=== PATIENT | female | born 1985 | race Caucasian/White ===

== ENCOUNTER 2020-03-20 08:37 | Day surgery (SDC) | payer OTHER, SELFPAY ==
[2020-03-17 09:55] VITALS: BMI 29.2
--- NOTE | 2020-03-20 08:40 | W.PM.OPSFHP ---
Same Day Surgery H&P Indication for Procedure/HPI DATE OF PROCEDURE: March 20, 2020 CHIEF COMPLAINT/INDICATIONFOR SURGICAL PROCEDURE: Dysphagia and odynophagia PREOP DIAGNOSIS: Dysphasia and odynophagia PLANNED PROCEDRUE: Operation Date: 03/20/20 10:05 Proposed Procedures p EGD [id number] /R13.10(Not Applicable) - Danilo Fine MD Medications/Allergies* Home Medications Medication Instructions Recorded Confirmed Type docusate sodium 100 mg capsule 100 mg PO BID 11/12/19 03/17/20 History magnesium glycinate 200 mg PO BID 03/17/20 03/17/20 History Allergies/Adverse Reactions Allergy/AdvReac Type Severity Reaction Status Date / Time No Known Allergies Allergy Verified 03/13/20 14:44 Pertinent History/Comorbid Conditions* Medical History (Updated 03/13/20 @ 15:16 by Danilo Fine MD) Anxiety Hemorrhoids Surgical History (Updated 11/12/19 @ 11:17 by David Celis MD) H/O oral surgery History of delivery Family History (Updated 11/12/19 @ 11:06 by Julee Terrell LPN) Heart disease Cancer Father melanoma Grandfather colon Hypertension Denies family history of Anesthesia complication Bleeding disorder Social History Smoking and tobacco status: never smoked Alcohol intake: never Household members: spouse and children Marital status: Current occupational status: employed Pertinent Exam Findings alert, oriented x 3, clear to auscultation bilaterally, regular rate & rhythm, operative site marked and procedure specific exam findings Recommendations Surgery/Procedure today Coding Level of Care Code Acute Healthcare Technician for Henok Stark
--- NOTE | 2020-03-20 08:47 | ANES.PREANE2 ---
Pre-Anesthetic Assessment Pre-Anesthetic Assessment: Height/Weight: Height 1.57 m Weight 72.575 kg Preop Diagnosis: dysphagia Proposed Procedure: Operation Date: 03/20/20 10:05 Proposed Procedures p EGD [id number] /R13.10(Not Applicable) - Danilo Fine MD Familial anesthetic complications: None Was Beta Hallie taken within 24 hours: N/A Last intake: NPO Social: Social History: No alcohol and No tobacco Exam: Pre-Anes Outpt Exam: alert, oriented x 3, clear to auscultation bilaterally and regular rate & rhythm Airway: Cervical ROM: WNL MP: 2 Dentition: Full Pulmonary: Pulmonary: None reported CV/HEM: CV/HEM: None reported : : None reported Hepatic: Hepatic: None reported GI: GI: None reported Metabolic: Metabolic: None reported Musc/skel: Musc/skel: None reported Neuropsych: Neuropsych: None reported Anesthetic Plan: ASA status: 1 Anesthesia: MAC Risk of > 500 ml blood loss (7ml/kg in children): No PFSH Anesthesia PFSH: Medical History (Updated 03/13/20 @ 15:16 by Danilo Fine MD) Anxiety Hemorrhoids Surgical History H/O oral surgery History of delivery Family History Father Cancer melanoma Grandfather Cancer colon Other Heart disease Hypertension Denies family history of Anesthesia complication Bleeding disorder Social History Smoking and tobacco status: never smoked Alcohol intake: never Household members: spouse and children Marital status: Current occupational status: employed Female Reproductive History: Date of last menstrual period: 02/21/20 Data Anesthesia Cardiac Studies: No Data to Display
[2020-03-20 08:50] VITALS: BP 146/81; PULSE 87; RESP 18; TEMP 36.6; O2SAT 100
[2020-03-20 09:14] LABS: OR HCG Qualitative Urine Negative (Negative)
[2020-03-20] MEDS: sodium chloride 0.9% 1,000 ML 30 ML IV (09:15)
[2020-03-20 10:24] VITALS: BP 118/74; PULSE 87; RESP 18; TEMP 36.6; O2SAT 98
[2020-03-20 10:37] VITALS: BP 105/65; PULSE 72; RESP 18; O2SAT 100
[2020-03-21 10:08] LABS: H. Pylori / CLO Test Negative
== END 2020-03-20 11:00 | disposition home or self-care (01) ==
PROVIDERS: Anesthesiology; PCP Internal Medicine; Visit Provider Internal Medicine
PROC: 0DJ08ZZ Inspection of Upper Intestinal Tract, Via Natural or Artificial Opening Endoscopic (ICD-10-PCS; CPT 43235; principal; 2020-03-20 10:00)
DX: R13.10 Dysphagia, unspecified (principal); K29.70 Gastritis, unspecified, without bleeding; F41.9 Anxiety disorder, unspecified
CPT/HCPCS: 12345; 43239; 81025; 84703; 87077; J2001; J2704; J7030

== ENCOUNTER → 2020-07-06 14:38 | Outpatient (BNVA) | payer OTHER, SELFPAY | PROVIDERS: PCP Internal Medicine; Referring Provider Dermatology; Visit Provider Dermatology | DX: Z12.83 Encounter for screening for malignant neoplasm of skin (principal); D22.9 Melanocytic nevi, unspecified; L81.4 Other melanin hyperpigmentation; Z80.8 Family history of malignant neoplasm of other organs or systems | CPT/HCPCS: 99203 ==

== ENCOUNTER → 2021-06-14 13:25 | Outpatient (BNVA) | payer OTHER, SELFPAY | PROVIDERS: PCP Internal Medicine; Visit Provider Nurse Practitioner Family | DX: R21 Rash and other nonspecific skin eruption (principal) | CPT/HCPCS: 87040 ==

== ENCOUNTER → 2022-05-27 10:21 | Outpatient (BNVA) | payer OTHER, SELFPAY | PROVIDERS: PCP Family Medicine; Visit Provider Family Medicine | DX: Z00.00 Encounter for general adult medical examination without abnormal findings (principal); Z13.6 Encounter for screening for cardiovascular disorders | CPT/HCPCS: 80053; 80061; 84443; 85025; 88175 ==

== ENCOUNTER → 2023-04-10 08:41 | Outpatient (BNVA) | payer OTHER, SELFPAY | PROVIDERS: PCP Family Medicine; Visit Provider Nurse Practitioner Family | DX: E78.5 Hyperlipidemia, unspecified (principal) | CPT/HCPCS: 80053; 80061; 82607; 84443; 85025 ==

== ENCOUNTER 2023-06-02 08:50 | Outpatient (CLI) | payer OTHER, SELFPAY ==
--- NOTE | 2023-06-02 08:59 | MM_ITS ---
WS: [id number] BILATERAL SCREENING DIGITAL BREAST MAMMOGRAPHY WITH DESI DISPLACEMENT VIEWS. CAD PERFORMED. HISTORY: Screening COMPARISON: None available. Bilateral craniocaudal and mediolateral oblique views are performed with tomosynthesis and SM. Desi displacement views in CC and MLO projection also performed. Breasts composition: The breasts are heterogeneously dense, which may obscure small masses. Retropec pillo implants are intact. No capsular contraction or calcification. No mass or nodules. MM/[place] [id number] IMPRESSION: BI-RADS: 2-Benign FOLLOW-UP: 1 Year Follow-up
== END 2023-06-02 08:51 | disposition home or self-care (01) ==
PROVIDERS: PCP Nurse Practitioner Family; Visit Provider Nurse Practitioner Family
DX: Z12.31 Encounter for screening mammogram for malignant neoplasm of breast (principal)
CPT/HCPCS: 77063; 77067; 80053; 80061; 82607; 84443; 85025

== ENCOUNTER → 2024-09-24 09:12 | Outpatient (BNVA) | payer OTHER, SELFPAY | PROVIDERS: PCP Nurse Practitioner Family; Visit Provider Nurse Practitioner Family | DX: E78.5 Hyperlipidemia, unspecified (principal); F41.9 Anxiety disorder, unspecified; R13.10 Dysphagia, unspecified | CPT/HCPCS: 80053; 80061; 82306; 82607; 84443; 85025 ==

== ENCOUNTER 2024-10-01 12:45 | Outpatient (CLI) | payer OTHER, SELFPAY ==
--- NOTE | 2024-10-01 13:30 | MM_ITS ---
WS: [id number] BILATERAL SCREENING DIGITAL BREAST MAMMOGRAPHY WITH DESI DISPLACEMENT VIEWS. CAD PERFORMED. HISTORY: Z12.39 - Encounter for other screening for malignant neoplasm. COMPARISON: 06/02/2023 Bilateral craniocaudal and mediolateral oblique views are performed with tomosynthesis and SM. Desi displacement views in CC and MLO projection also performed. Breasts composition: The breasts are heterogeneously dense, which may obscure small masses. Implants are intact. There is an asymmetry in the central RIGHT breast which was present in 06/02/2023 with no change. No suspicious grouping of calcifications. MM/MM scr BI tomosynthesis [id number] IMPRESSION: BI-RADS: 2 - Benign FOLLOW-UP: 1 Year Follow-up
== END 2024-10-01 12:46 | disposition home or self-care (01) ==
LOC: RAD 12:46
PROVIDERS: PCP Nurse Practitioner Family; Visit Provider Nurse Practitioner Family
DX: Z12.31 Encounter for screening mammogram for malignant neoplasm of breast (principal); R92.333 Mammographic heterogeneous density, bilateral breasts; Z98.82 Breast implant status; N64.89 Other specified disorders of breast
CPT/HCPCS: 77063; 77067

== ENCOUNTER → 2024-12-21 11:01 | Outpatient (BNVA) | payer OTHER, SELFPAY | PROVIDERS: PCP Nurse Practitioner Family; Visit Provider Nurse Practitioner Women's Health | DX: Z20.2 Contact with and (suspected) exposure to infections with a predominantly sexual mode of transmission (principal) | CPT/HCPCS: 86695; 86696 ==

== ENCOUNTER → 2025-05-02 16:34 | Outpatient (BNVA) | payer OTHER, SELFPAY | PROVIDERS: PCP Nurse Practitioner Family; Visit Provider Nurse Practitioner Women's Health | DX: Z01.419 Encounter for gynecological examination (general) (routine) without abnormal findings (principal); N92.6 Irregular menstruation, unspecified | CPT/HCPCS: 80053; 82306; 82670; 83001; 83002; 83036; 84144; 84146; 84443; 85025 ==

== ENCOUNTER → 2025-05-19 10:27 | Outpatient (BNVA) | payer OTHER, SELFPAY | PROVIDERS: PCP Nurse Practitioner Family; Visit Provider Nurse Practitioner Women's Health | DX: N92.1 Excessive and frequent menstruation with irregular cycle (principal); N94.89 Other specified conditions associated with female genital organs and menstrual cycle; D25.9 Leiomyoma of uterus, unspecified; N85.2 Hypertrophy of uterus | CPT/HCPCS: 76830 ==

== ENCOUNTER → 2025-06-30 13:49 | Outpatient (BNVA) | payer OTHER, SELFPAY | PROVIDERS: PCP Nurse Practitioner Family; Visit Provider Obstetrics & Gynecology | DX: D25.9 Leiomyoma of uterus, unspecified (principal) | CPT/HCPCS: 88305 ==